=== PATIENT | male | born 1940 | race Caucasian/White ===

== ENCOUNTER → 2019-05-15 | Outpatient (CLI) | payer MEDICARE ==
--- NOTE | 2019-05-15 16:27 | EXE ---
[place] [address] STRESS ECHOCARDIOGRAM Name: ARIVALERY L Room: [facility]#: [id number] Admission: 05/15/19 Attend Phys: Samir Redmond, Discharge: Date of : 40 Date of Service: 05/15/19 1627 Report #: [id number] THIS REPORT FOR: //name// APPROVED REPORT Study performed: 05/15/2019 15:09:14 Exam: Dobutamine Stress Echo Indication: Prolonged Sinus Pauses, Fatigue Patient Location: Out-Patient Stress Nurse: Evelyn Spicer RN Supervising Physician: Samir Palencia MD Ht: 6 ft 0 in HR: 72 bpm BP: 138/85 mmHg Medical History Cardiac Risk Factors: Hyperlipidemia Procedure The patient underwent a Pharmacological Stress Test using Dobutamine. Blood pressure, heart rate, and EKG were monitored. An Echocardiogram was performed by composite technician in four stages in quad fashion. At peak stress, four selected images were obtained and placed side by side with resting images for comparison. Stress Test Details Stress Test: Pharmacological Stress Test using Dobutamine. HR Resting HR: 72 bpm Max Heart Rate (APMHR): 141 bpm Max HR Achieved: 126 bpm Target HR (85% APMHR): 119 bpm % of APMHR: 89 Recovery HR: 86 bpm HR response to stress: Normal HR response to stress BP Resting BP: 138/85 mmHg Max BP: 144/81 mmHg Recovery BP: 140/83 mmHg BP response to stress: Normal blood pressure response to stress. [place] [address] STRESS ECHOCARDIOGRAM Name: VALERY CHAPMAN Room: [facility]#: [id number] Admission: 05/15/19 Attend Phys: Samir Redmond, Discharge: Date of : 40 Date of Service: 05/15/19 1627 Report #: [id number] The resting Echocardiogram showed normal left ventricular contractility with an estimated Ejection Fraction of about 55-60%. Normal wall motion in all segments on baseline images. Post-Stress Echo The stress Echocardiogram showed normal left ventricular contractility with an estimated Ejection Fraction of about >70%. Normal augmentation of wall motion in all segments on post stress images. Conclusion Clinical Response: Non-ischemic Stress ECG Response: Non-ischemic Stress Echo Images: Non-ischemic Other Information Study Quality: Fair <ELECTRONICALLY SIGNED> By: Samir Palencia MD, [facility] 05/15/19 1627 1627 1627 Samir Palencia MD, FACC /INF
== END ==
LOC: M.CRD 14:10
DX: R53.83 Other fatigue (principal); E78.5 Hyperlipidemia, unspecified